=== PATIENT | female | born 1970 | race Caucasian/White ===

== ENCOUNTER 2019-10-30 18:28 | Emergency (ER) | payer MEDICAID ==
[~2019-10-30] VITALS: Ht 175.3 cm; Wt 90.0 kg
[2019-10-30 19:36] LABS: EOSINOPHILS % (AUTO) 0 % (0-6); LYMPHOCYTES # (AUTO) 1.3 X10'3 (1.1-4.8); MEAN CORPUSCULAR HEMOGLOBIN 30.8 PG (27.0-31.0); MONOCYTES # (AUTO) 0.3 X10'3 (0-0.9); MONOCYTES % (AUTO) 2.6 % (2-12)
[2019-10-30 19:37] LABS: BASOPHILS % (AUTO) 0.2 % (0-1); LYMPHOCYTES % (AUTO) 10.3 % (21-51); MEAN CORPUSCULAR HGB CONC 34.3 g/dL (33.0-36.5); MEAN CORPUSCULAR VOLUME 89.6 FL (78-98); MEAN PLATELET VOLUME 7.8 FL (7.4-10.4); NEUTROPHILS # (AUTO) 11.2 X10'3 (1.8-7.7); NEUTROPHILS % (AUTO) 86.9 % (42-75); PLATELET COUNT 240 X10'3 (140-440); RED BLOOD COUNT 6.03 X10'6 (4.20-5.60); RED CELL DISTRIBUTION WIDTH 13.6 % (11.5-14.5); WHITE BLOOD COUNT 12.9 X10'3 (4.5-11.0)
[2019-10-30 19:51] LABS: ALANINE AMINOTRANSFERASE 26 U/L (12-78); ALBUMIN 4.9 G/DL (3.4-5.0); ALBUMIN/GLOBULIN RATIO 1.4 (1.1-1.5); ALKALINE PHOSPHATASE 108 IU/L (46-116); ANION GAP 17 (8-16); ASPARTATE AMINO TRANSFERASE 23 U/L (10-37); BILIRUBIN,TOTAL 0.9 MG/DL (0.1-1.0); BLOOD UREA NITROGEN 19 MG/DL (7-18); BUN/CREATININE RATIO 24.4 (6.6-38.0); CALCIUM 10.3 MG/DL (8.5-10.1); CHLORIDE 103 MMOL/L (99-107); CREATININE 0.78 MG/DL (0.40-0.90); GLUCOSE 129 MG/DL (70-104); HEMOGLOBIN 18.6 g/dl (12.0-16.0); LIPASE 327 U/L (73-393); POTASSIUM 3.7 MMOL/L (3.5-5.1); SODIUM 143 MMOL/L (135-145); TOTAL PROTEIN 8.5 G/DL (6.4-8.2); eGFR 78 ML/MIN
[2019-10-30] MEDS ORDERED: ondansetron/PF 4mg/2ml inj IV ONE (20:20)
[2019-10-30] MEDS ORDERED: normal saline 1000ML IV soln IVB ONE (20:20)
[2019-10-30] MEDS ORDERED: CefTRIAXone/D5W-Rocephin 1gm 50 ML IV ONE (20:25)
[2019-10-30] MEDS ORDERED: morphine 4 MG/ML inj SYRINge IV ONE (20:25)
[2019-10-30] MEDS ORDERED: LORazepam 2 mg/ml vial IV ONE ×2 (20:30→22:15)
--- NOTE | 2019-10-30 20:30 | NUR ---
Attempted IV access in the left AC without success. Asked another staff nurse to attempt IV access.
[2019-10-30 21:16] LABS: CLARITY,URINE SLIGHTLY CLOUDY (Clear); COLOR,URINE YELLOW (Yellow); GLUCOSE, URINE NEGATIVE (Neg); KETONES,URINE >=80 mg/dl (Neg); LEUKOCYTE ESTERASE ,URINE NEGATIVE (Neg); NITRITES, URINE POSITIVE (Neg); OCCULT BLOOD,URINE LARGE (Neg); PROTEIN,URINE 30 mg/dl (Neg); UROBILINOGEN,URINE 0.2 E.U/dL (0.2-1.0)
[2019-10-30 21:21] LABS: UA COLLECTION TYPE CLN CATCH MIDSTREAM
[2019-10-30 21:24] LABS: BACTERIA,URINE 1+ /HPF (Neg); MUCUS STRANDS FEW /LPF (Neg); SQUAMOUS EPITHELIAL CELL,UR MODERATE /LPF (FEW)
[2019-10-30 21:26] LABS: HYALINE CASTS 0-3 /LPF (NEGATIVE)
[2019-10-30] MEDS ORDERED: metoclopramide 5 mg/ml inj IV ONE (21:30)
[2019-10-30] MEDS ORDERED: mag hydrox/Alum hydrox/simeth 30ml oral suspension PO ONE ×2 (21:30→22:15)
[2019-10-30] MEDS ORDERED: pantoprazole 40 MG vial IV ONE (21:30)
[2019-10-30] MEDS ORDERED: famotidine 20mg tablet PO ONE (21:30)
[2019-10-30] MEDS ORDERED: LIDOcaine Viscous 15ml cup MM ONE (22:15)
[2019-10-30 22:20] VITALS: BP 143/64
== END 2019-10-30 22:25 | disposition home or self-care (01) ==
LOC: ER 18:29
DX: K29.00 Acute gastritis without bleeding (principal); E86.0 Dehydration; N39.0 Urinary tract infection, site not specified; Z87.442 Personal history of urinary calculi; Z88.2 Allergy status to sulfonamides; Z88.8 Allergy status to other drugs, medicaments and biological substances
CPT/HCPCS: 36415; 80053; 81001; 83690; 85025; 87088; 96365; 96375; 96376; 99284; C9113; J0696; J2060; J2270; J2405; J2765; J7030